=== PATIENT | female | born 2000 | race Caucasian/White ===

== ENCOUNTER 2021-02-22 08:46 | Emergency (ER) | payer OTHER ==
[~2021-02-22] VITALS: Ht 177.8 cm; Wt 64.4 kg
[2021-02-22] MEDS ORDERED: AMOX875T2 PO (09:02)
[2021-02-22] MEDS ORDERED: NS 1,000 ML IV ONE (09:50)
[2021-02-22 10:35] LABS: BASO # 0.1 10^3/uL (0.0-0.2); BASO % 0.8 % (0.0-1.0); EOS # 0.1 10^3/uL (0.0-0.5); HEMATOCRIT 42.6 % (36.0-47.0); HEMOGLOBIN 13.9 g/dl (12.0-15.5); LYMPH # 2.1 10^3/uL (1.5-5.0); LYMPH % 32.7 % (24.0-44.0); MEAN CORPUSCULAR HEMOGLOBIN 29.5 pg (27.0-33.0); MEAN CORPUSCULAR HGB CONC 32.6 g/dl (32.0-36.5); MEAN CORPUSCULAR VOLUME 90.4 fl (80.0-96.0); MONO # 0.4 10^3/uL (0.0-0.8); MONO % 5.9 % (2.0-8.0); NEUTROPHILS # 3.7 10^3/uL (1.5-8.5); NEUTROPHILS % 59.3 % (36.0-66.0); PLATELET COUNT, AUTOMATED 235 10^3/uL (150-450); RED BLOOD COUNT 4.71 10^6/uL (4.00-5.40); WHITE BLOOD COUNT 6.3 10^3/uL (4.0-10.0)
[2021-02-22 10:58] LABS: MONO SCRN NEGATIVE (NEGATIVE)
[2021-02-22 11:07] LABS: RSV AMPLIFICATION NEGATIVE (NEGATIVE)
[2021-02-22 11:08] LABS: ALBUMIN 4.2 GM/DL (3.2-5.2); ALT/SGPT 14 U/L (12-78); BILIRUBIN,TOTAL 0.7 MG/DL (0.2-1.0); BLOOD UREA NITROGEN 12 MG/DL (7-18); CARBON DIOXIDE LEVEL 29 MEQ/L (21-32); CHLORIDE LEVEL 105 MEQ/L (98-107); CREATININE FOR GFR 0.59 MG/DL (0.55-1.30); FREE T4 0.86 NG/DL (0.78-1.33); GLUCOSE, FASTING 74 MG/DL (70-100); POTASSIUM SERUM 3.9 MEQ/L (3.5-5.1); SODIUM LEVEL 140 MEQ/L (136-145); THYROID STIMULATING HORMONE 0.556 uIU/ML (0.463-3.98); TOTAL PROTEIN 7.5 GM/DL (6.4-8.2)
[2021-02-22 12:44] LABS: HCG, SERUM QUALITATIVE NEGATIVE (NEGATIVE)
--- NOTE | 2021-02-22 13:51 | REPVR ---
PROCEDURE INFORMATION: Exam: MR Head Without Contrast Exam date and time: 02/22/2021 1:34 PM Age: 20 years old Clinical indication: Pain; Tension; Patient HX: Headaches, dizziness TECHNIQUE: Imaging protocol: MR of the head without contrast. COMPARISON: No relevant prior studies available. FINDINGS: Brain: Examination of the brain demonstrates normal morphology and signal intensity.No acute infarction, masses, midline shift or acute hemorrhage is seen. No acute intracranial abnormality is identified.There is no abnormal diffusion weighted signal intensity to suggest an acute ischemic event.The cortical barfield / white matter interfaces are preserved throughout the brain.Intracranial flow voids are well maintained. Cerebral ventricles: The ventricular system is not dilated and is appropriate for the patient's age. Bones/joints: Unremarkable. Paranasal sinuses: Normal as visualized. No acute sinusitis. Mastoid air cells: Normal as visualized. No mastoid effusion. Orbital cavity: Unremarkable. Soft tissues: Unremarkable. IMPRESSION: No acute infarction, masses or hemorrhage is seen. No acute intracranial abnormality is identified. Electronically signed by: Russ Duque On 02/22/2021 13:51:34 PM
[2021-02-22 16:09] LABS: CK-MB VALUE MASS < 1.0 NG/ML (<3.6); CPK CREATINE PHOSPHOKINASE 66 U/L (26-192); MB/CK RELATIVE INDEX 1.52 (< OR =4); TROPONIN I < 0.02 NG/ML (< 0.10)
[2021-02-22 16:24] VITALS: BP 116/66
--- NOTE | 2021-02-22 19:20 | ECGEPIP ---
[facility] - ED Test Date: 2021-02-22 Pat Name: BRE ANTOINE Department: Room: - Gender: Female Retail Marketing Specialist: SAUNDRA : [id number] Requested By: JUAN FRANCISCO Demarco PA-C Order Number: [id number] Reading MD: Jose Jackson Measurements Intervals [place] Rate: 68 P: 14 UT: 116 QRS: 82 QRSD: 100 T: 34 QT: 384 QTc: 408 Interpretive Statements Normal sinus rhythm with sinus arrhythmia No prior ECG for comparison Electronically Signed on 02-22-2021 19:20:19 EDT by Jose Jackson
[2021-02-23 12:55] LABS: VITAMIN B12 LEVEL 444 PG/ML (247-911)
[2021-02-24 16:09] LABS: Lyme Disease IgG/IgM Antibodie <0.91 ISR (0.00-0.90); Lyme Disease IgM Ab Quantitati <0.80 index (0.00-0.79)
== END 2021-02-22 16:25 | disposition home or self-care (01) ==
LOC: M ED 08:46
DX: I95.1 Orthostatic hypotension (principal); H61.22 Impacted cerumen, left ear; K58.9 Irritable bowel syndrome, unspecified; R51.9 Headache, unspecified; N80.9 Endometriosis, unspecified; F41.9 Anxiety disorder, unspecified; F33.9 Major depressive disorder, recurrent, unspecified